=== PATIENT | female | born 1960 | race Caucasian/White ===

== ENCOUNTER 2019-03-05 14:15 | Outpatient (CLI) | payer OTHER ==
--- NOTE | 2019-03-05 15:43 | BD ---
Exam: DEXA Bone Density 03/05/19 HISTORY: 58-year-old postmenopausal female for screening. COMPARISON: None. Lumbar Spine: BMD (g/cm2) T-SCORE L1 0.963 -0.2 L2 0.842 -1.7 L3 0.847 -2.2 L4 0.784 -2.5 L1-L4 0.855 -1.7 Left Femoral Neck: 0.703 -1.3 Total Proximal Left Femur: 0.880 -0.5 Impression: Osteopenia. This patient has a ten year WHO fracture risk for a major osteoporotic fracture of 7.3% a nd hip fracture of 0.5%. POS: [facility]
== END 2019-03-05 14:16 | disposition home or self-care (01) ==
LOC: BICMAMMO 14:15
PROVIDERS: ATTEND Obstetrics & Gynecology
DX: Z13.820 Encounter for screening for osteoporosis (principal); M85.89 Other specified disorders of bone density and structure, multiple sites
CPT/HCPCS: 77080

== ENCOUNTER 2021-01-10 09:02 | Outpatient (CLI) | payer OTHER | END 2021-01-10 09:03 | disposition home or self-care (01) | LOC: BICMAMMO 09:02 | PROVIDERS: ATTEND Internal Medicine Rheumatology | DX: M81.0 Age-related osteoporosis without current pathological fracture (principal); M85.89 Other specified disorders of bone density and structure, multiple sites | CPT/HCPCS: 77080 ==

== ENCOUNTER 2023-03-13 07:37 | Outpatient (CLI) | payer BC | END 2023-03-13 07:38 | disposition home or self-care (01) | LOC: BICMAMMO 07:37 | PROVIDERS: ATTEND Family Medicine | DX: Z12.31 Encounter for screening mammogram for malignant neoplasm of breast (principal) | CPT/HCPCS: 77063; 77067 ==

== ENCOUNTER 2023-08-17 07:44 | Outpatient (CLI) | payer BC, OTHER | END 2023-08-17 07:45 | disposition home or self-care (01) | LOC: BICULT 07:44 | PROVIDERS: ATTEND Internal Medicine Rheumatology | DX: R79.89 Other specified abnormal findings of blood chemistry (principal); R93.2 Abnormal findings on diagnostic imaging of liver and biliary tract; Z90.49 Acquired absence of other specified parts of digestive tract | CPT/HCPCS: 76705 ==

== ENCOUNTER 2024-03-14 08:28 | Outpatient (CLI) | payer BC | END 2024-03-14 08:29 | disposition home or self-care (01) | LOC: BICMAMMO 08:28 | PROVIDERS: ATTEND Family Medicine | DX: Z12.31 Encounter for screening mammogram for malignant neoplasm of breast (principal); Z85.828 Personal history of other malignant neoplasm of skin | CPT/HCPCS: 77063; 77067 ==

== ENCOUNTER 2024-04-24 08:08 | Outpatient (CLI) | payer BC | END 2024-04-24 08:09 | disposition home or self-care (01) | LOC: BICRAD 08:08 | DX: M79.605 Pain in left leg (principal) ==

== ENCOUNTER 2025-03-17 10:27 | Outpatient (CLI) | payer BC | END 2025-03-17 10:28 | disposition home or self-care (01) | LOC: BICMAMMO 10:27 | PROVIDERS: ATTEND Family Medicine | DX: Z12.31 Encounter for screening mammogram for malignant neoplasm of breast (principal); Z85.828 Personal history of other malignant neoplasm of skin | CPT/HCPCS: 77063; 77067 ==